=== PATIENT | male | born 1940 | race Caucasian/White ===

== ENCOUNTER 2016-10-21 23:39 | Inpatient (IN) | payer MEDICARE, OTHER ==
[~2016-10-21] VITALS: Ht 182.9 cm; Wt 115.3 kg
[~2016-10-21 23:39] MED LIST: AMLO5TAB4 PO; ASPI81TA2 PO; ATEN50TA PO; DOXA2TAB2 PO; FENO160T PO; LOSA1TAB17 PO; LOVA40TA2 PO; MELO-150 PO; OMEP20TA PO
[2016-10-22] VITALS (7 sets, daily range): BP systolic 126–173; BP diastolic 60–91
[2016-10-22] MEDS ORDERED: AMLO10TA2 PO (01:35)
[2016-10-22] MEDS: PANTOPRAZOLE 40 MG TABLET.DR. PO SCH (07:54)
[2016-10-22] MEDS: ASPIRIN CHEWABLE 81 MG TABLET. PO SCH (07:54)
[2016-10-22] MEDS: amLODIPine BESYLATE 10 MG TABLET PO SCH (07:54)
[2016-10-22] MEDS: LOSARTAN POTASSIUM 50 MG TABLET. PO SCH (07:55)
[2016-10-22] MEDS: hydroCHLOROthiazide 25 MG TABLET PO SCH (07:55)
--- NOTE | 2016-10-22 08:41 | PDOC ---
Provider Note Provider Note [id number] PRADEEP PRITCHARD MD October 22, 2016 08:41
[2016-10-22] MEDS ORDERED: NON FORMULARY ITEM (Losartan/Hydrochlorothiazide (Losartan-Hctz 100-25 Mg Tab) 1 EACH) PO SCH (09:00)
--- NOTE | 2016-10-22 09:39 | EKG ---
[facility] [address] [place] [address] Test Date: 1999-08-01 Test Time: 19:51:59 Pat Name: LEON LIAO Department: Room: 4 1 Gender: M Service Observer: ELIE : 1940 Requested By: PRADEEP PRITCHARD Order Number: [id number] Reading MD: Kavya Mcfarlane Measurements Intervals Combs Rate: 68 P: 48 MS: 204 QRS: 18 QRSD: 94 T: 51 QT: 390 QTc: 419 Interpretive Statements SINUS RHYTHM LOW LIMB LEAD VOLTAGE QRS(T) CONTOUR ABNORMALITY CONSISTENT WITH ANTEROSEPTAL INFARCT AGE UNDETERMINED T ABNORMALITY IN ANTEROLATERAL LEADS ABNORMAL ECG RI6.01 No previous ECG available for comparison Electronically Signed On 10-22-2016 21:31:48 CDT by Kavya Mcfarlane
[2016-10-22 09:59] LABS: CALCIUM 9.3 mg/dL (8.5-10.1); CREATININE 1.2 mg/dL (0.7-1.3); GFR 58.9; MAGNESIUM 1.6 mg/dL (1.8-2.4); POTASSIUM 3.3 mmol/L (3.5-5.1)
--- NOTE | 2016-10-22 11:52 | HP ---
ADMIT DATE: 10/22/2016 CHIEF COMPLAINT: Burning chest pain. HISTORY OF PRESENT ILLNESS: The patient is a 76-year-old white male with a history of coronary bypass about 7 years ago who was here about year and a half ago with chest pain and he had a normal MPI at that time. 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 He came to the [facility] ER and was transferred here for care with Dr. Walker. He has had no further chest pain or episodes of any other kind and no recent chest pain, exertional or nonexertional. He has ongoing allergy symptoms as his only problem. PAST MEDICAL HISTORY: MEDICATIONS: Listed per the chart. ALLERGIES: No allergies are known. No other serious medical problems aside from history of coronary bypass and controlled hypertension and cholesterol. SOCIAL HISTORY: Nonsmoker, nondrinker. Physically active. . FAMILY HISTORY: Unremarkable. REVIEW OF SYSTEMS: No other specific complaints except for chronic nasal congestion, drainage and allergy symptoms. OBJECTIVE: ENT: All within normal limits. NECK: No carotid bruits, nodes, or thyroid enlargement. LUNGS: Clear. CARDIOVASCULAR: Regular rate. No irregular beat, murmur or tachycardia. ABDOMEN: Soft, benign, nontender, no masses, megaly or nodes. EXTREMITIES: Good pedal and radial pulses. No joint or skin lesions. No clubbing or cyanosis. NEUROLOGIC: Physiologic, nonfocal. GENITOURINARY: Deferred. RECTAL: Deferred. LABORATORY STUDIES: Not available at this time from [facility]. ASSESSMENT: Burning chest pain with a history of coronary bypass 7 years ago. He has controlled hypertension and acid reflux. This is relatively low suspicion for myocardial source, but we will proceed with MPI and check the routine labs as well and Dr. Walker has been consulted. PRADEEP PRITCHARD MD DR: ANAYA/ab JOB#: [id number] / [id number]
--- NOTE | 2016-10-22 18:05 | PDOC2 ---
CONSULT Date of Consult Date of Consult DATE: 10/22/16 TIME: 17:57 Reason for Consult Reason for Consult: Chest pain Referring Physician Referring Physician: Dr. Jae Jones Identification/Chief Complaint Chief Complaint Chest pain History of Present Illness Reason for Visit: This patient is a 76-year-old gentleman that has a known history of coronary artery disease and bypass surgery. 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 He has been under a lot of stress lately and while working developed some left- sided tingling chest discomfort that was different from his previous angina but it caused him to be a little lightheaded and he was concerned with the possibility that he was having a heart attack and went to the emergency room at [facility]. The ER in [facility] called me and told me that the patient had a normal EKG and normal enzymes but that he had some episodes of chest pains therefore I told him to transfer the patient here for further workup and treatment. At the time that I examined him he was resting comfortably and denies having any chest discomfort. Past Medical History Cardiovascular: CAD, HTN, Hyperlipidemia Current Medications Current Medications Current Medications Amlodipine Besylate (Norvasc) 10 mg DAILY PO Last administered on 10/22/16 07: 54; Start 10/22/16 at 09:00 Aspirin (Children'S Aspirin) 81 mg DAILY PO Last administered on 10/22/16 07: 54; Start 10/22/16 at 09:00 Atenolol (Tenormin) 50 mg HS PO ; Start 10/22/16 at 21:00 Doxazosin Mesylate (Cardura) 2 mg QHS PO ; Start 10/22/16 at 21:00 Fenofibrate (Lofibra) 134 mg HS PO ; Start 10/22/16 at 21:00 Non-Formulary Medication 1 each DAILY PO ; Start 10/22/16 at 09:00; Status UNV Atorvastatin Calcium (Lipitor) 10 mg HS PO ; Start 10/22/16 at 21:00 Meloxicam (Mobic) 15 mg HS PO ; Start 10/22/16 at 21:00 Pantoprazole Sodium (Protonix) 40 mg DAILYAC PO Last administered on 10/22/16 07:54; Start 10/22/16 at 07:30 Losartan Potassium (Cozaar) 100 mg DAILY PO Last administered on 10/22/16 07: 55; Start 10/22/16 at 09:00 Hydrochlorothiazide (Hydrodiuril) 25 mg DAILY PO Last administered on 07:55; Start 10/22/16 at 09:00 Active Scripts Active Reported Amlodipine Besylate 10 Mg Tablet 10 Mg PO DAILY Omeprazole 20 Mg Tablet.dr 20 Mg PO DAILY Aspirin 81 Mg Tab.chew 1 Tab PO DAILY Fenofibrate 160 Mg Tablet 145 Mg PO HS Atenolol 50 Mg Tablet 50 Mg PO HS Meloxicam 15 Mg Tablet 15 Mg PO HS Losartan-Hctz 100-25 Mg Tab (Losartan/Hydrochlorothiazide) 1 Each Tablet 1 Each PO DAILY Lovastatin 40 Mg Tablet 40 Mg PO HS Doxazosin Mesylate 2 Mg Tablet 1 Tab PO QHS Allergies Allergies: Coded Allergies: No Known Drug Allergies (Unverified , 06/17/15) Physical Exam Physical Exam The patient was not in acute distress at the time of the examination. H EENT pupils are reactive. Oral mucosa well-hydrated. Neck is supple no JVD. Lungs are clear. Heart regular rate and rhythm normal S1 normal S2 no S3 no S4. Abdomen is soft bowel sounds are present. Extremities no edema. Neurological exam is grossly intact. Vitals VITALS Vital Signs Date Time Temp Pulse Resp B/P (MAP) Pulse Ox O2 Delivery O2 Flow Rate FiO2 10/22/16 14:49 98.3 57 16 126/60 (82) 94 Room Air 98.3 Labs Labs Laboratory Tests Test 10/22/16 09:25 Sodium Level 139 mmol/L (136-145) Potassium Level 3.3 mmol/L (3.5-5.1) Chloride Level 101 mmol/L (98-107) Carbon Dioxide Level 28 mmol/L (21-32) Anion Gap 10 (6-14) Blood Urea Nitrogen 17 mg/dL (8-26) Creatinine 1.2 mg/dL (0.7-1.3) Estimated GFR (Cockcroft-Gault) 58.9 Glucose Level 137 mg/dL (70-99) Calcium Level 9.3 mg/dL (8.5-10.1) Magnesium Level 1.6 mg/dL (1.8-2.4) Laboratory Tests Test 10/22/16 09:25 Sodium Level 139 mmol/L (136-145) Potassium Level 3.3 mmol/L (3.5-5.1) Chloride Level 101 mmol/L (98-107) Carbon Dioxide Level 28 mmol/L (21-32) Anion Gap 10 (6-14) Blood Urea Nitrogen 17 mg/dL (8-26) Creatinine 1.2 mg/dL (0.7-1.3) Estimated GFR (Cockcroft-Gault) 58.9 Glucose Level 137 mg/dL (70-99) Calcium Level 9.3 mg/dL (8.5-10.1) Magnesium Level 1.6 mg/dL (1.8-2.4) Assessment/Plan Assessment/Plan This patient comes in with an episode of atypical chest pains but has a known history of coronary artery disease and bypass. So far EKGs and enzymes have been negative. The last time he had a stress test was about a year and a half ago. I would recommend to get a Lexiscan MPI and then depending on the results decide if any further workup is needed. Thank you very much for asking me to participate in the care of this patient CRISTINA PHELPS MD October 22, 2016 18:05
[2016-10-22] MEDS: ATORVASTATIN CALCIUM 10 MG TABLET. PO SCH (20:16)
[2016-10-22] MEDS: FENOFIBRATE,MICRONIZED 134 MG CAPSULE PO SCH (20:16)
[2016-10-22] MEDS: MELOXICAM 7.5 MG TABLET PO SCH (20:17)
[2016-10-22] MEDS: ATENOLOL 50 MG TABLET. PO SCH (20:17)
[2016-10-22] MEDS: DOXAZOSIN MESYLATE 4 MG TABLET. PO SCH (20:20)
[2016-10-23 07:00] VITALS: BP 129/64
--- NOTE | 2016-10-23 08:11 | PDOC ---
Provider Note Provider Note vss, lab ok, no more pain, mpi today- add K+ re lower level PRADEEP PRITCHARD MD October 23, 2016 08:11
[2016-10-23] MEDS: POTASSIUM CHLORIDE 10 MEQ TABLET.ER. PO SCH ×3 (08:30→18:56)
[2016-10-23] MEDS ORDERED: REGADENOSON 0.4 MG/5 ML DISP.SYRIN. IV ONE (10:30)
[2016-10-23 11:03] VITALS: BP 128/67
[2016-10-23] MEDS: ASPIRIN CHEWABLE 81 MG TABLET. PO SCH (12:58)
[2016-10-23] MEDS: LOSARTAN POTASSIUM 50 MG TABLET. PO SCH (12:59)
[2016-10-23] MEDS: PANTOPRAZOLE 40 MG TABLET.DR. PO SCH (12:59)
[2016-10-23] MEDS: hydroCHLOROthiazide 25 MG TABLET PO SCH (12:59)
[2016-10-23] MEDS: amLODIPine BESYLATE 10 MG TABLET PO SCH (13:00)
[2016-10-23 15:00] VITALS: BP 128/69
--- NOTE | 2016-10-23 18:00 | RAD ---
APPROVED REPORT Test Type: Pharmacological Stress Nurse/Tech: Nicole Mcdaniel RN Test Indications: chest pain Cardiac History: see ehr Medications: see ehr Medical History: see ehr Resting ECG: SB Resting Heart Rate: 56 bpm Resting Blood Pressure: 132/72mmHg Pretest Chest Pain: None Nurse/Tech Notes Lungs CTA, S1, S2 Consent: The procedure was explained to the patient in lay terms. Informed consent was witnessed. Karlos eout was entered into [employer]. History and Stress Test performed by [facility]. Details Pharmacologic stress testing was performed using 0.4mg per 5ml of regadenoson given intravenously ove r 7-10 seconds. Stress Symptoms No chest pain or symptoms. POST EXERCISE Reason for Termination: Infusion complete Max HR: 80 bpm Max Blood Pressure: 144/76mmHg Blood Pressure response to exercise: Normal blood pressure response during stress. Chest Pain: No. Arrhythmia: No. ST Change: No. INTERPRETATION Stress EKG Conclusion: No acute changes were noted. Imaging Protocol IMAGE PROTOCOL: Rest Tc-99m/stress Tc-99m 1 day Rest: Stress: Viability: Radiopharm.Tc99m BbwrelyttRc28s Sestamibi Dkzo73tIh 30.2mCi Duration 15min. 10min. Img Date 10/23/2016 10/23/2016 Inj-Img Ecrr24pob. 60min. Rest Admin Site:IV - Left ForearmAdministrator:RT Madison (R)(N) Stress Admin Site: IV - Left ForearmAdministrator: LUCIA Coleman STRESS DATA End Diast. Vol.79.0mlAv. Heart Rate63.0bpm End Syst. Vol.20.0mlCO Index BSA0.0L/min Myocardial Jlax373.0gEject. Uudsxpqn52.0% Stress Rates Pk. Fill Rate1.24EDV/secLVtime Pk. Fill 221.74msec Pk. Empty Rate4.38ESV/secLVtime Pk. Ndztx121.17msec / Pk. Fill0.85EDV/sec Stress Scores Regional WT0.00Summed WT2.00 Regional WM0.00Summed WM2.00 LV Perf. Quant 17 Seg. SSS5.00 17 Seg. SRS8.00 17 Seg. SDS0.00 Stress Defect Extent (% LAD)0.00Rest Defect Extent (% LAD)3.10Rev. Defect Extent (% LAD)0.00 Stress Defect Extent (% LCX) 27.50Rest Defect Extent (% LCX)36.30Rev. Defect Extent (% LCX)0.00 Stress Defect Extent (% RCA)0.00Rest Defect Extent (% RCA)7.80Rev. Defect Extent (% RCA)0.00 Stress Defect Extent (% JONATHAN)5.20Rest Defect Extent (% JONATHAN)15.00Rev. Defect Extent (% JONATHAN)0.00 Conclusion 1. The baseline electrocardiogram showed nonspecific ST-T wave changes in the inferolateral leads. 2. There were no further changes suggestive of myocardial ischemia with pharmacological stress. 3. Small to moderate-sized scar is seen in the lateral wall. There is no ischemia. 4. Normal wall motion and wall thickening with an ejection fraction of 75%. 5. Scan indicates low risk for future cardiac events.
[2016-10-23 19:00] VITALS: BP 123/78
--- NOTE | 2016-10-23 19:34 | PDOC ---
PROGRESS NOTES Subjective Subjective The patient had he Lexiscan MPI done today. Objective Objective Vital Signs Date Time Temp Pulse Resp B/P (MAP) Pulse Ox O2 Delivery O2 Flow Rate FiO2 10/23/16 15:00 97.4 61 18 128/69 (88) 95 Room Air 97.4 Intake and Output 10/23/16 07:00 Intake Total 660 ml Balance 660 ml Intake Oral 660 ml # Voids 3 Physical Exam Physical Exam No significant changes in cardiac exam Assessment Assessment The patient's MPI showed no reversible ischemia, only an old scar. I do not think the patient's symptoms were actual angina. May go home to be followed as an outpatient. Comment Review of Relevant I have reviewed the following items adrián (where applicable) has been applied. Labs Laboratory Tests Test 10/22/16 09:25 Sodium Level 139 mmol/L (136-145) Potassium Level 3.3 mmol/L (3.5-5.1) Chloride Level 101 mmol/L (98-107) Carbon Dioxide Level 28 mmol/L (21-32) Anion Gap 10 (6-14) Blood Urea Nitrogen 17 mg/dL (8-26) Creatinine 1.2 mg/dL (0.7-1.3) Estimated GFR (Cockcroft-Gault) 58.9 Glucose Level 137 mg/dL (70-99) Calcium Level 9.3 mg/dL (8.5-10.1) Magnesium Level 1.6 mg/dL (1.8-2.4) Medications Current Medications Amlodipine Besylate (Norvasc) 10 mg DAILY PO Last administered on 10/23/16 13: 00; Start 10/22/16 at 09:00 Aspirin (Children'S Aspirin) 81 mg DAILY PO Last administered on 10/23/16 12: 58; Start 10/22/16 at 09:00 Atenolol (Tenormin) 50 mg HS PO Last administered on 10/22/16 20:17; Start at 21:00 Doxazosin Mesylate (Cardura) 2 mg QHS PO Last administered on 10/22/16 20:20; Start 10/22/16 at 21:00 Fenofibrate (Lofibra) 134 mg HS PO Last administered on 10/22/16 20:16; Start 10/22/16 at 21:00 Non-Formulary Medication 1 each DAILY PO ; Start 10/22/16 at 09:00; Status UNV Atorvastatin Calcium (Lipitor) 10 mg HS PO Last administered on 10/22/16 20:16 ; Start 10/22/16 at 21:00 Meloxicam (Mobic) 15 mg HS PO Last administered on 10/22/16 20:17; Start 10/22 at 21:00 Pantoprazole Sodium (Protonix) 40 mg DAILYAC PO Last administered on 10/23/16 12:59; Start 10/22/16 at 07:30 Losartan Potassium (Cozaar) 100 mg DAILY PO Last administered on 10/23/16 12: 59; Start 10/22/16 at 09:00 Hydrochlorothiazide (Hydrodiuril) 25 mg DAILY PO Last administered on 12:59; Start 10/22/16 at 09:00 Potassium Chloride (Klor-Con) 10 meq TIDPC PO Last administered on 10/23/16 18 :56; Start 10/23/16 at 08:30 Regadenoson (Lexiscan) 0.4 mg 1X ONCE IV Last administered on 10/23/16 12:00 ; Start 10/23/16 at 10:30; Stop 10/23/16 at 10:31; Status DC Active Scripts Active Reported Amlodipine Besylate 10 Mg Tablet 10 Mg PO DAILY Omeprazole 20 Mg Tablet.dr 20 Mg PO DAILY Aspirin 81 Mg Tab.chew 1 Tab PO DAILY Fenofibrate 160 Mg Tablet 145 Mg PO HS Atenolol 50 Mg Tablet 50 Mg PO HS Meloxicam 15 Mg Tablet 15 Mg PO HS Losartan-Hctz 100-25 Mg Tab (Losartan/Hydrochlorothiazide) 1 Each Tablet 1 Each PO DAILY Lovastatin 40 Mg Tablet 40 Mg PO HS Doxazosin Mesylate 2 Mg Tablet 1 Tab PO QHS Vitals/I & O Vital Sign - Last 24 Hours 10/22/16 10/22/16 10/22/16 10/22/16 20:00 20:17 20:20 22:35 Temp 97.9 97.9 Pulse 57 57 69 Resp 18 B/P (MAP) 126/60 126/60 129/74 (92) Pulse Ox 94 O2 Delivery Room Air Room Air 10/23/16 10/23/16 10/23/16 10/23/16 07:00 07:55 11:03 12:59 Temp 97.7 98.0 97.7 98.0 Pulse 58 61 65 Resp 18 18 B/P (MAP) 129/64 (85) 128/67 (87) 124/71 Pulse Ox 96 94 O2 Delivery Room Air Room Air Room Air 10/23/16 10/23/16 13:00 15:00 Temp 97.4 97.4 Pulse 65 61 Resp 18 B/P (MAP) 124/71 128/69 (88) Pulse Ox 95 O2 Delivery Room Air Intake and Output 10/22/16 10/22/16 10/23/16 15:00 23:00 07:00 Intake Total 360 ml 300 ml Balance 360 ml 300 ml CRISTINA PHELPS MD October 23, 2016 19:34
[2016-10-23] MEDS: FENOFIBRATE,MICRONIZED 134 MG CAPSULE PO SCH (20:43)
[2016-10-23] MEDS: DOXAZOSIN MESYLATE 4 MG TABLET. PO SCH (20:46)
[2016-10-23 20:49] VITALS: BP 150/86
[2016-10-23] MEDS: ATENOLOL 50 MG TABLET. PO SCH (20:49)
[2016-10-23] MEDS: ATORVASTATIN CALCIUM 10 MG TABLET. PO SCH (20:49)
[2016-10-23] MEDS: MELOXICAM 7.5 MG TABLET PO SCH (20:50)
--- NOTE | 2016-10-24 08:39 | PDOC ---
Provider Note Provider Note [id number] PRADEEP PRITCHARD MD October 24, 2016 08:38
--- NOTE | 2016-10-24 19:45 | DS ---
DATE OF DISCHARGE: 10/23/2016 HOSPITAL SUMMARY: A 76-year-old white male, 7 years out from coronary artery bypass surgery, who had an episode of chest tightness and pressure when he was under stress at work. Laboratory study showed potassium of 3.3, otherwise within normal limits. EKG showed no acute change. An MPI showed good ejection fraction at 75%. No ischemic changes on either pharmacologic stress or EKG, and he had no further chest pain while in the hospital. He was comfortable to be discharged and followed as an outpatient. FINAL DIAGNOSIS: Noncardiac chest pain. OPERATIONS, PROCEDURES, AND COMPLICATIONS: None. CONSULTATIONS: Dr. Walker. DISPOSITION: All home meds remain the same. ACTIVITY AND DIET: As tolerated. FOLLOWUP: On an as-scheduled basis. PRADEEP PRITCHARD MD DR: ANAYA/ab JOB#: [id number] / [id number]
== END 2016-10-23 22:10 | disposition home or self-care (01) | DRG 313 ==
LOC: 5 SOUTH 10-22 01:10
PROVIDERS: ADMIT Family Medicine; ATTEND Family Medicine
DX: R07.9 Chest pain, unspecified (principal); E78.5 Hyperlipidemia, unspecified; I25.10 Atherosclerotic heart disease of native coronary artery without angina pectoris; K21.9 Gastro-esophageal reflux disease without esophagitis; I10 Essential (primary) hypertension; Z79.899 Other long term (current) drug therapy; Z79.2 Long term (current) use of antibiotics; Z95.1 Presence of aortocoronary bypass graft; Z79.82 Long term (current) use of aspirin
CPT/HCPCS: 36415; 78452; 80048; 83735; 93005; 93017; 96374; 96375; 96376; A9500; J2785